=== PATIENT | male | born 1995 | race Caucasian/White ===

== ENCOUNTER 2018-07-02 13:05 | Emergency (ER) | payer MEDICAID ==
[~2018-07-02] VITALS: Ht 177.8 cm; Wt 100.0 kg
[2018-07-02] MEDS ORDERED: SODIUM CHLORIDE 0.9% 1,000 ML IV ONE (16:30)
[2018-07-02] MEDS ORDERED: ChlordiazePOXIDE HCL 25 MG CAPSULE PO ONE (16:30)
[2018-07-02 17:35] VITALS: BP 136/69
== END 2018-07-02 18:09 | disposition home or self-care (01) ==
LOC: EMS 13:06
DX: K92.2 Gastrointestinal hemorrhage, unspecified (principal); F11.23 Opioid dependence with withdrawal; M79.10 Myalgia, unspecified site; F17.210 Nicotine dependence, cigarettes, uncomplicated